=== PATIENT | female | born 1950 | race Caucasian/White ===

== ENCOUNTER 2016-07-28 15:38 | Emergency (ER) | payer OTHER ==
[~2016-07-28] VITALS: Ht 157.5 cm; Wt 65.3 kg
[2016-07-28 15:55] VITALS: BP 119/76
[2016-07-28 17:51] LABS: ABSOLUTE BASOPHIL COUNT 0 /CUMM (0.0-0.2); ABSOLUTE EOSINOPHIL COUNT 0.2 /CUMM (0.0-0.7); ABSOLUTE GRANULOCYTE CT 6.1 /CUMM (1.4-6.5); ABSOLUTE LYMPH COUNT 3.4 /CUMM (1.2-3.4); ABSOLUTE MONOCYTE COUNT 0.7 /CUMM (0.10-0.60); BASOPHIL % 0.5 % (0.0-2.0); EOSINOPHIL % 2.3 % (0-5); GRANULOCYTE % 57.9 % (42.2-75.2); HEMATOCRIT 46.7 % (37-47); MEAN CORPUSCULAR HGB 30.6 PG (27.0-31.0); MEAN CORPUSCULAR VOLUME 92.7 FL (81.0-99.0); MEAN PLATELET VOLUME 8.5 FL (7.4-10.4); PLATELET COUNT 277 /CUMM (130-400); RBC DISTRIBUTION WIDTH 12.5 % (11.5-14.5); RED BLOOD CELL CT 5.04 /CUMM (4.20-5.40); WHITE BLOOD CELL COUNT 10.6 /CUMM (4.8-10.8)
--- NOTE | 2016-07-28 18:27 | ED GI/GU/ABDOMINAL COMPLAINT ---
History of Present Illness General Chief Complaint: Abdominal Pain/Flank Pain Stated Complaint: LL ABD PAIN Source: patient, old records Exam Limitations: no limitations Vital Signs & Intake/Output Vital Signs & Intake/Output Vital Signs Date Time Temp Pulse Resp B/P Pulse O2 O2 Flow FiO2 Ox Delivery Rate 07/28 1555 97.2 113 18 119/76 97 Room Air ED Intake and Output 07/29 0000 07/28 1200 Intake Total Output Total Balance Patient 144 lb Weight Allergies Coded Allergies: bee pollen (Intermediate, SWELLING, RED RASH 08/03/15) peppermint (Intermediate, PASSES OUT 08/03/15) mushroom (Mild, DIARRHEA 08/03/15) clarithromycin (LIGHT-HEADED 08/03/15) Uncoded Allergies: HONEYDEW MELON (Severe, TONGUE AND THROAT SWELLING 01/09/15) Reconcile Medications Albuterol Sulfate (Proair Respiclick) 90 MCG AER.POW.BA ASTHMA (Reported) Ciprofloxacin HCl (Cipro) 500 MG TABLET 1 TAB PO BID diverticulitis Cyclobenzaprine HCl 10 MG TABLET 1 TAB PO TID MUSCLE RELAXER (Reported) Ibuprofen/Famotidine (Duexis 800-26.6 MG Tablet) 800 MG-26.6 MG TABLET PAIN ( Reported) Ipratropium [place] 21 MCG (0.03 %) SPRAY ASTHMA (Reported) Isosorbide Mononitrate (Isosorbide Mononitrate ER) 60 MG TAB.ER.24H ? (Reported ) Levothyroxine Sodium (Synthroid) 150 MCG TABLET SYNTHROID (Reported) Methylprednisolone 4 MG TAB.DS.PK ASTHMA (Reported) Metronidazole (Flagyl) 500 MG TABLET 1 TAB PO TID diverticulitis Nitroglycerin 0.4 MG TAB.SUBL HEART PAIN (Reported) Triage Note: C/O LEFT SIDED ABDOMINAL PAIN SINCE YESTERDAY. DENIES NAUSEA, VOMITING OR DIARRHEA. RECENTLY STARTED ON NEW ANTI-INFLAMMATORY MEDICATION FOR SACRAL JOINT PROBLEM. PMH: DIVERTICULITIS. Triage Nurses Notes Reviewed? yes ? N Is pt currently ? No Onset: Abrupt Duration: day(s): (1), constant Timing: recent history Quality/Severity: aching, moderate, sharpness Severity Numbers: 7 Location: left lower quadrant Radiation: no radiation Activities at Onset: none Prior Abdominal Problems: similar symptoms No Modifying Factors: none Associated Symptoms: DENIES HPI: 65-year-old female with history of diverticulitis chronic back pain presents the emergency room for evaluation complaining of a one-day history of left lower quadrant nonradiating sharp aching pain at the left lower quadrant. She denies any nausea vomiting or change in her bowel movements, NO black or bloody stools. No chest pain or shortness of breath. The patient's abdominal surgeries for appendectomy and hysterectomy. She is not taken anything for her symptoms. The patient required admission to Hospital 2013 for her diverticulitis. She denies recent weight losses or contacts or recent travel. There are no modifying factors or associated symptoms otherwise she denies tobacco or alcohol use. No urinary symptoms (NOHEMI JACOME) Past History Travel History Traveled to [place] past 21 day No Medical History Any Pertinent Medical History? see below for history Cardiovascular: angina, hypertension, AORTIC VALVE SCLEROSIS Respiratory: asthma Gastrointestinal: diverticulitis Musculoskeletal: BACK PROBLEMS Endocrine: hypothyroidism History of MRSA: No History of VRE: No History of CDIFF: No Surgical History Surgical History: appendectomy, hysterectomy, LT SHOULDER SX BILAT KNEE REPAIR SPINAL FUSION Psychosocial History Who do you live with Family Services at Home None What is your primary language Danish Tobacco Use: Never used ETOH Use: denies use Family History Hx Contributory? No (NOHEMI JACOME) Review of Systems Review of Systems Constitutional: Reports: see HPI. All Other Systems: Reviewed and Negative Comments Review of systems: See HPI, All other systems negative. Constitutional, no chills no fever, no malaise no weight loss HEENT: No visual changes no sore throat no congestion Cardiovascular: No chest pain , no palpitation Skin, no jaundice no rashes, no change in skin Respiratory: No dyspnea no cough no sputum GI: No nausea no vomiting, no diarrhea, no bloating/constipation : No dysuria No hematuria, no frequency, Muscle skeletal: No joint pain, no back pain, no neck pain, Neurologic: No numbness no headache Psych: No stress Heme/endocrine: No bruising no bleeding Immunology: No lymphadenopathy (NOHEMI JACOME) Physical Exam Physical Exam General Appearance: well developed/nourished, alert, awake, comfortable Gastrointestinal: soft, tenderness (left lower quadrant) Comments: Well-developed well-nourished person in no acute distress HEENT: Normal EENT exam; PERRL, EOMI, no nystagmus. HEAD is atraumatic. moist mucous membranes. Neck: Supple, normal range of motion Back: Nontender, no CVA tenderness. Full range of motion Cardiovascular: Regular rate and rhythms no murmurs rubs Respiratory: No respiratory distress. Patient speaking in full complete sentences. Breath sounds clear to auscultation bilaterally: NO W/R/R Abdomen: Soft, tender to palpation over the left lower quadrant nondistended, no appreciable organomegaly. Normal bowel sounds. No rebound/guarding, No appreciable enlargement of the abdominal aorta, No ascites. Extremity: No edema, full range of motion of extremities Neuro: Alert oriented x3, motor sensory normal, There were no obvious focal neurologic abnormalities. Skin: No appreciable rash on exposed skin, skin is warm and dry. No jaundice no diaphoresis Psych: Mood and affect is normal, memory and judgment is normal. Core Measures ACS in differential dx? No Severe Sepsis Present: No Septic Shock Present: No (AV TRUJILLO,NOHEMI) Progress Differential Diagnosis: bowel obstruction, colon cancer, diverticulitis, gastritis, hepatitis, hernia, ischemic bowel, inflamm bowel dis, kidney stone, pancreatitis, peptic ulcer, PUD/GERD, perforated viscous, SBO, abscess Plan of Care: Orders Procedure Date/time Status COMPREHENSIVE METABOLIC PANEL 07/28 172 Complete CBC WITHOUT DIFFERENTIAL 07/28 1722 Complete Laboratory Tests 07/28/16 1735: Anion Gap 7, Estimated GFR > 60, BUN/Creatinine Ratio 27.1 H, Glucose 101 H, Calcium 9.5, Total Bilirubin 0.6, AST 27, ALT 34, Alkaline Phosphatase 72, Total Protein 7.5, Albumin 4.2, Globulin 3.3, Albumin/Globulin Ratio 1.3, CBC w Diff NO MAN DIFF REQ, RBC 5.04, MCV 92.7, MCH 30.6, RDW 12.5, MPV 8.5, Gran % 57.9, Lymphocytes % 32.4, Monocytes % 6.9, Eosinophils % 2.3, Basophils % 0.5, Absolute Granulocytes 6.1, Absolute Lymphocytes 3.4, Absolute Monocytes 0.7 H, Absolute Eosinophils 0.2, Absolute Basophils 0, PUBS MCHC 33.0 07/28/16 172: Urine Color Cancelled, Urine Clarity Cancelled, Urine pH Cancelled, Ur Specific [place] Cancelled, Urine Protein Cancelled, Urine Ketones Cancelled, Urine Nitrite Cancelled, Urine Bilirubin Cancelled, Urine Urobilinogen Cancelled, Ur Leukocyte Esterase Cancelled, Ur Microscopic Cancelled, Urine Hemoglobin Cancelled, Urine Glucose Cancelled CAT scan labs ordered patient medicated with morphine 4 mg IV IV fluids case discussed with Dr. pena 07/28/2016 8:30:43 PM repeat evaluation patient is requesting something to drink discussed with her need to wait for CAT scan. She reports the pain has resolved with morphine declining anything else for pain she denies nausea will continue to monitor I discussed her at length all of her lab results 07/28/2016 9:18:41 PM discussed with patient her CAT scan results given similar presentation of symptoms in the past requiring admission to Hospital will treat with Damir Uriarte, I discussed the need for close follow up with Dr. Cheung tomorrow and she will call. I advised return if any time with any concerns including worsening of pain if she develops fever chills nausea vomiting or any other concerns answered all of her questions they feel comfortable with this plan cleared for discharge (AV TRUJILLO,NOHEMI) Diagnostic Imaging: Viewed by Me: CT Scan. Discussed w/RAD: CT Scan. Radiology Impression: PATIENT: RENAN HALL PRESENT AGE: 65 PATIENT ACCOUNT NO: [id number] : 51 LOCATION: [facility] ORDERING PHYSICIAN: NOHEMI TRUJILLO SERVICE DATE: 07/28/16 EXAM TYPE: CAT - CT ABD & PELVIS W IV CONTRAST EXAMINATION: CT ABDOMEN AND PELVIS WITH CONTRAST CLINICAL INFORMATION: Left lower quadrant abdominal pain. COMPARISON: None TECHNIQUE: Multidetector volumetric imaging was performed of the abdomen and pelvis after the IV administration of 95 mL of Optiray 320 intravenous contrast. Sagittal and coronal reformatted images were obtained on the technologist's workstation. DLP: 279.86 mGy-cm FINDINGS: LUNG BASES: The visualized lung bases are unremarkable. LIVER, GALLBLADDER, AND BILIARY TREE: The liver is normal in size, shape, and attenuation. No focal hepatic lesion or biliary ductal dilatation is present. There are 2 peripherally calcified gallstones in the gallbladder measuring about a centimeter in size. No edema around the gallbladder. No bile duct dilatation. PANCREAS: Unremarkable. SPLEEN: Unremarkable. ADRENAL GLANDS: Unremarkable. KIDNEYS AND URETERS: 4 mm hypodensity in the midpole anterior cortex of right kidney unchanged since prior CAT scan likely small cortical cysts. The kidneys are normal in size, shape, and attenuation. No hydronephrosis, hydroureter, or calculi seen. No perinephric stranding. BLADDER: Unremarkable. GASTROINTESTINAL TRACT: The small and large bowel are unremarkable. No diverticula. No bowel wall thickening or edema. No bowel obstruction. The appendix is normal identified. No inflammation of the mesentery.. ABDOMINAL WALL: No significant hernia is appreciated. LYMPH NODES: Normal. VASCULAR: Unremarkable. PELVIC VISCERA: Uterus is absent. No adnexal abnormality. OSSEOUS STRUCTURES: Multilevel degenerative change of the spine with disc height narrowing and endplate spurs. Transpedicular screws L4-L5 with disc spacer. IMPRESSION: No acute abnormality CT scan abdomen pelvis. DICTATED BY: MARISA RODRIGUEZ MD DATE/TIME DICTATED:07/28/162025 BELT BUILDER:GUERA DATE/TIME TRANSCRIBED:07/28/162025 CONFIDENTIAL, DO NOT COPY WITHOUT APPROPRIATE AUTHORIZATION. <Electronically signed in Other Vendor System> SIGNED BY: MARISA RODRIGUEZ MD 07/28/162040 Initial ED EKG: none (NOHEMI JACOME) Departure Departure Time of Disposition: 2117 Disposition: HOME OR SELF CARE Condition: Stable Clinical Impression Primary Impression: Diverticulitis Referrals: GISSELLE YANCEY,SAY Campbell (PCP/Family) Additional Instructions: As discussed follow-up with Dr. Cheung tomorrow. Cipro and Flagyl as directed Tylenol Motrin as needed for pain. [place] diet clear liquids advance as tolerated. Return to the emergency room anytime sooner with any concerns or worsening of your symptoms Your prescriptions were sent to [facility] Departure Forms: Customer Survey General Discharge Information Prescriptions: Current Visit Scripts Ciprofloxacin HCl (Cipro) 1 TAB PO BID #14 TAB Metronidazole (Flagyl) 1 TAB PO TID #21 TAB (NOHEMI JACOME) PA/BRICK SIDING APPLICATOR Co-Sign Statement Statement: ED Attending supervision documentation- [] I saw and evaluated the patient. I have also reviewed all the pertinent lab results and diagnostic results. I agree with the findings and the plan of care as documented in the PA's/BRICK SIDING APPLICATOR's documentation. [X] I have reviewed the ED Record and agree with the PA's/BRICK SIDING APPLICATOR's documentation. [] Additions or exceptions (if any) to the PAs/BRICK SIDING APPLICATOR's note and plan are summarized below: [] (NAHOMY YANCEY,ADRIANE)
[2016-07-28] MEDS ORDERED: CYCLOBENZAPRINE10 M1 PO (19:50)
[2016-07-28] MEDS ORDERED: METHYLPREDNISOLO4 M2 (19:50)
[2016-07-28] MEDS ORDERED: DUEXIS 800-26.1 EACH (19:51)
[2016-07-28] MEDS ORDERED: IPRATROPIUM BRO30 M2 (19:51)
[2016-07-28] MEDS ORDERED: SYNTHROID150 MCG (19:51)
[2016-07-28] MEDS ORDERED: NITROGLYCERIN0.4 M1 (19:52)
[2016-07-28] MEDS ORDERED: ISOSORBIDE MONO60 M1 (19:54)
[2016-07-28] MEDS ORDERED: PROAIR RESPICL90 MCG (19:54)
--- NOTE | 2016-07-28 20:41 | CT SCAN REPORT ---
EXAMINATION: CT ABDOMEN AND PELVIS WITH CONTRAST CLINICAL INFORMATION: Left lower quadrant abdominal pain. COMPARISON: None TECHNIQUE: Multidetector volumetric imaging was performed of the abdomen and pelvis after the IV administration of 95 mL of Optiray 320 intravenous contrast. Sagittal and coronal reformatted images were obtained on the technologist's workstation. DLP: 279.86 mGy-cm FINDINGS: LUNG BASES: The visualized lung bases are unremarkable. LIVER, GALLBLADDER, AND BILIARY TREE: The liver is normal in size, shape, and attenuation. No focal hepatic lesion or biliary ductal dilatation is present. There are 2 peripherally calcified gallstones in the gallbladder measuring about a centimeter in size. No edema around the gallbladder. No bile duct dilatation. PANCREAS: Unremarkable. SPLEEN: Unremarkable. ADRENAL GLANDS: Unremarkable. KIDNEYS AND URETERS: 4 mm hypodensity in the midpole anterior cortex of right kidney unchanged since prior CAT scan likely small cortical cysts. The kidneys are normal in size, shape, and attenuation. No hydronephrosis, hydroureter, or calculi seen. No perinephric stranding. BLADDER: Unremarkable. GASTROINTESTINAL TRACT: The small and large bowel are unremarkable. No diverticula. No bowel wall thickening or edema. No bowel obstruction. The appendix is normal identified. No inflammation of the mesentery.. ABDOMINAL WALL: No significant hernia is appreciated. LYMPH NODES: Normal. VASCULAR: Unremarkable. PELVIC VISCERA: Uterus is absent. No adnexal abnormality. OSSEOUS STRUCTURES: Multilevel degenerative change of the spine with disc height narrowing and endplate spurs. Transpedicular screws L4-L5 with disc spacer. IMPRESSION: No acute abnormality CT scan abdomen pelvis.
[2016-07-28] MEDS ORDERED: CIPRO500 M1 PO (21:20)
[2016-07-28] MEDS ORDERED: FLAGYL500 MG PO (21:20)
== END 2016-07-28 21:39 ==
LOC: ERH 15:38
PROVIDERS: Emergency Medicine
DX: K57.92 Diverticulitis of intestine, part unspecified, without perforation or abscess without bleeding (principal)
CPT/HCPCS: 74177; 96361; 96374